=== PATIENT | male | born 1990 | race Two or more races ===

== ENCOUNTER 2020-01-10 04:10 | Emergency (ER) | payer OTHER ==
[~2020-01-10] VITALS: Ht 175.3 cm; Wt 88.5 kg
== END 2020-01-10 06:54 | disposition home or self-care (01) ==
LOC: ER 04:10
DX: R00.2 Palpitations (principal)

== ENCOUNTER 2020-02-21 15:16 | Emergency (ER) | payer OTHER ==
[~2020-02-21] VITALS: Ht 152.4 cm; Wt 87.1 kg
== END 2020-02-21 17:14 | disposition home or self-care (01) ==
LOC: ER 15:16
DX: M94.0 Chondrocostal junction syndrome [Tietze] (principal)